=== PATIENT | male | born 1985 | race Caucasian/White ===

== ENCOUNTER 2023-08-07 14:15 | Outpatient (AMB) | payer OTHER, SELFPAY ==
[2023-08-07 14:52] VITALS: BP 114/64; PULSE 81; TEMP 36.6; O2SAT 98; BMI 22.2
--- NOTE | 2023-08-07 14:52 | AM.OFFWIN_ITS ---
Intake Vital Signs 08/07/23 14:52 Height 5 ft 10 in Weight 155 lb BMI 22.2 BP 114/64 Blood Pressure Location Rt brachial Position Sitting Pulse 81 Pulse Source Pulse Oximeter Temp 97.8 F Temp Source Oral Pulse Oximetry (%) 98 Oxygen Delivery Method Room Air Intake Visit Reasons: EST/ mouth /throat pain (lobby) Intake Note: pt is here for possibe tooth infection and feels like it traveled down to throat Patient Tobacco Use Status: Current everyday Tobacco user Allergies No Known Allergies Allergy (Verified 08/07/23 14:52) Do you need a note to return to daycare/school/sports/work: Yes HPI HPI Comments History of Present Illness Details Patient presents to the walk-in today for sick visit Complaining of right lower tooth pain for last 6 days With some right-sided throat pain for last 2 days Denies fevers, chills, nausea, vomiting, diarrhea, chest pain, weakness, dizziness PFSH Social History Patient Tobacco Use Status: Current everyday Tobacco user Review of Systems Const All systems reviewed & are unremarkable except as noted in HPI and below Physical Exam Vital Signs: Last Vital Signs Temp 97.8 F 08/07/23 14:52 Pulse 81 08/07/23 14:52 BP 114/64 08/07/23 14:52 Pulse Ox 98 08/07/23 14:52 Oxygen Delivery Method Room Air 08/07/23 14:52 BMI result Body Mass Index 22.2 General: awake, alert, oriented. Answers questions appropriately. Fully engaged in examination. Skin: warm, dry, intact HEENT: Posterior pharynx without erythema or exudate. Moist oral mucosa. Right lower molars brown, decayed and broken at gum line. Sclera without icterus or injection. No cervical lymphadenopathy Cardiac: External chest normal in appearance. Respiratory: LSCTAB. Abdomen: without gross distension. Neurological: Oriented to person, place, time and situation. Thought process intact. Psychiatric: Appropriate mood and affect. Good judgment and insight. Results AMB Rapid Strep AMB Rapid Strep Negative Last Edit by Eduardo Villa CMA on 08/07/23 15 :06 Results Reviewed Results Reviewed: Laboratory Last Values Strep Scn Rapid Clinic Negative 08/07/23 15:05 Assessment & Plan Assessment & Plan (1) Dental infection: Code(s): K04.7 - Periapical abscess without sinus Plan Rapid strep negative Amoxicillin 500 mg p.o. t.i.d. x7 days Follow up with dentist follow up with PCP or return here for any new or worsening symptoms Orders: Orders AMB Rapid Strep Screen Today Liborio Velazquez MD Z13.9 - Encounter for screening, unspecified Medications: New amoxicillin 500 mg PO TID 7 days 21 caps 0RF Elina Knight APRN, [employer] Coding Level of Care Code Est Pt Level 3 (37184) Diagnoses Dental infection K04.7
== END 2023-08-07 15:35 | disposition home or self-care (01) ==
PROVIDERS: Visit Provider Registered Nurse Emergency
DX: K04.7 Periapical abscess without sinus (principal); J02.9 Acute pharyngitis, unspecified
CPT/HCPCS: 87880; 99213

== ENCOUNTER → 2024-08-01 14:28 | Outpatient (BNVA) | payer OTHER, SELFPAY | PROVIDERS: Visit Provider Physician Assistant Medical | DX: S51.812A Laceration without foreign body of left forearm, initial encounter (principal); S61.215A Laceration without foreign body of left ring finger without damage to nail, initial encounter; S61.217A Laceration without foreign body of left little finger without damage to nail, initial encounter; V88.7XXA Person injured in collision between other specified motor vehicle, nontraffic, initial encounter | CPT/HCPCS: 73130; 90715; 99203 ==

== ENCOUNTER → 2024-08-05 07:57 | Outpatient (BNVA) | payer OTHER, SELFPAY | PROVIDERS: Visit Provider Physician Assistant Medical | DX: S51.812A Laceration without foreign body of left forearm, initial encounter (principal); S61.215A Laceration without foreign body of left ring finger without damage to nail, initial encounter; S61.217A Laceration without foreign body of left little finger without damage to nail, initial encounter; V88.7XXA Person injured in collision between other specified motor vehicle, nontraffic, initial encounter; Z02.79 Encounter for issue of other medical certificate | CPT/HCPCS: 99213 ==